=== PATIENT | female | born 1985 | race Caucasian/White ===

== ENCOUNTER 2016-10-31 16:52 | Inpatient (IN) | payer OTHER ==
[~2016-10-31] VITALS: Ht 160 cm; Wt 83.9 kg
--- NOTE | 2016-10-31 17:30 | NUR ---
PT BROUGHT IN VIA [facility] TO BE EVALUATED FOR THE COMPLAINT OF ALOC. PT PLACED ON A 5150 HOLD BY NEHAL KO. PER [facility], N[place]AS [place] WAS DOING THEIR ROUNDS AND FOUND THIS PT ACTING ALTERED. WHEN PT ARRIVED IN ED THE PT HAS WORD SALAD AND IS NOT ANSWERING AND QUESTIONS APPROPRIATELY. PT REPORTS THAT HE IS HEARING VOICE AND HEARING VOICING. PT REMAINS IN RESTRAINTS WITH ENOUGH ROOM BETWEEN THE RESTRAINT AND THE PTS SKIN TO FIT TWO FINGERS. CIRCULATION INTACT. PT IS IN DIRECT OBSERVATION OF THE NURSES STATION. PT IS REASSURED OF HER WELL-BEING.
[2016-10-31 18:12] LABS: BASOPHIL % 0.2 % (0-2); PLATELET COUNT 273 x10^3mcL (130-400); RED CELL DISTRIBUTION WIDTH 11.9 % (11.5-14.5)
[2016-10-31 18:16] LABS: CARBON DIOXIDE 20.9 mmol/L (21-32); CHLORIDE SERUM 105 mmol/L (98-107); GFR1 > 60 mL/min; GLUCOSE SERUM 124 mg/dL (74-106); POTASSIUM SERUM 3.7 mmol/L (3.5-5.1); SODIUM SERUM 140 mmol/L (136-145)
--- NOTE | 2016-10-31 18:20 | NUR ---
PT NOW ANSWERING QUESTIONS APPROPRIATELY. PT IS A/O X 4. DR. CRAMER AWARE.
[2016-10-31 18:21] LABS: ALBUMIN 4.2 g/dL (3.4-5.0); ALKALINE PHOSPHATASE 68 U/L (46-116); ALT/SGPT 35 U/L (14-59); AST/SGOT 22 U/L (15-37); BILIRUBIN TOTAL 0.3 mg/dL (0.20-1.00); TOTAL PROTEIN, SERUM 8.3 g/dL (6.4-8.2)
--- NOTE | 2016-10-31 18:28 | NUR ---
PT PROVIDED ME WITH HER MOTHERS NAME AND NUMBER: ROSITA [phone]
--- NOTE | 2016-10-31 18:31 | NUR ---
PTS BELONGINGS PLACED IN A BAG, CORRECTLY LABLED AND PLACED AT THE NURSES STATION.
--- NOTE | 2016-10-31 18:59 | NUR ---
PTS MOTHER CALLED AND INFORMED THAT THE PT IS HERE.
--- NOTE | 2016-10-31 19:11 | NUR ---
RECEIVED REPORT FROM LIANNA WILLIAM. ALL QUESTIONS AND CONCERNS ADDRESSED.
--- NOTE | 2016-10-31 19:39 | NUR ---
[facility] RESTRIANTS EVALUATATED. +CSM.
--- NOTE | 2016-10-31 19:50 | NUR ---
RESTRISTANTS REMOVED AT THIS TIME. PT IS FOLLOW DIRECTIONS AND NON COMBATIVE AT THIS TIME. WILL CONTINUE TO MONITOR. VS STABLE.
--- NOTE | 2016-10-31 19:55 | NUR ---
PT AMBULATED TO RESTROOM TO PROVIDE URINE SAMPLE FOR URINE DRUG SCREEN.
[2016-10-31 20:14] LABS: AMPHETAMINE QUAL UR NONE DETECTED (NEG <=1000)
[2016-10-31 23:32] LABS: UA SPECIFIC GRAVITY >=1.030 (1.005-1.035); microscopic required? YES; urine erythrocyte NEGATIVE (NEGATIVE)
--- NOTE | 2016-10-31 23:44 | NUR ---
PT RESTING IN GURNEY IN POSITION OF COMFORT AT THIS TIME. RESP E/U, NO DISTRESS NOTED. AROUSABLE TO VERBAL STIMULI. DENIES PAIN AT THIS TIME, COMFORT NEEDS ADDRESSED. VSS. GURNEY IN LOW LOCKED POSITION. WILL CONTINUE TO MONITOR.
[2016-11-01 00:06] LABS: MAGNESIUM 1.9 mg/dL (1.8-2.4); PHOSPHOROUS 3.1 mg/dL (2.5-4.9)
[2016-11-01 00:09] LABS: FREE T4 1.21 ng/dL (0.76-1.46); FREE THYROXINE INDEX 3.4 ug/dL (1.4-4.5); T4(THYROXINE) 10.1 ug/dL (4.7-13.3)
[2016-11-01 00:17] LABS: T3 TOTAL 1.12 ng/mL
[2016-11-01] MEDS ORDERED: RISPERIDONE2 M1 PO (00:42)
[2016-11-01] MEDS ORDERED: BENZTROPINE MESY1 MG PO (00:43)
[2016-11-01] MEDS ORDERED: DIVALPROEX SOD500 M2 PO (00:45)
--- NOTE | 2016-11-01 02:12 | NUR ---
REPORT GIVEN TO LIANNA GODFREY FOR [facility]ST TRANSFER
[2016-11-01 03:13] VITALS: BP 105/73
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
--- NOTE | 2016-11-01 07:40 | NUR ---
PATIENT AOX4, DENIES HEADACHE OR ANY PAIN/DISCOMOFORT. TELE 29. LUNGS CTA, NO RESP DISTRESS NOTED ON RA. PERIPHERAL PULSES PALPABLE, NO EDEMA. BOWEL SOUNDS ACTIVE, LAST BM YESETRDAY STATED NORMAL. NSKIN INTACT. IV ACCESS TO LFA RUNNING NS SITE WNL. CALL LIGHT WITHIN REACH. CALM AND COOPERATIVE AT THIS TIME. DENIES ANY SUICIDAL IDEATION AT THIS TIME. SITTER AT BEDSIDE.
[2016-11-01 07:45] VITALS: BP 108/52
--- NOTE | 2016-11-01 13:26 | NUR ---
PATIENT C/O TONGUE "FEELS LIKE ITS SWELLING AND TWISTING". PATIENT ALSO VOMITED. DR PHILIP PAGEMarium. BENEDRYL PO ORDERED. ZOFRAN OFFERED TO PATIENT BUT PATIENT STATES NAUSEA GONE. BENEDRYL PO GIVEN. 10 MINUTES LATER PATIENT VOMITED AGAIN. ZOFRAN GIVEN. DR PHILIP PAGEMarium AND BENEDRYL IV ORDERED. WILL GIVEN ONCE VERIFIED BY PHARMACY.
[2016-11-01 16:08] VITALS: BP 106/64
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
[2016-11-01] MEDS ORDERED: OLANZAPINE10 MG PO (18:34)
--- NOTE | 2016-11-01 19:43 | NUR ---
RECEIVED PT RESTING IN BED WITH EYES CLOSED. AROUSED WHEN NAME CALLED. ALERT AND VERBAL WITH CLEAR SPEECH. AOX4. ON ROOM AIR. NO S/S OF RESPIRATORY DISTRESS NOTED. ON TELE 29, NSR. DENIES ANY CHEST PAIN. ABD SOFT AND FLAT. BOWEL SOUNDS ACTIVE. LAST BM 11/01/16. IV TO LEFT FA PATENT AND INTACT. IV NS INFUSING WELL. NO S/S OF INFECTION NOTED. NO EDEMA NOTED. PULSES PALPABLE. NO S/S OF DISTRESS OR DISCOMFORT AT THIS TIME. DENIES ANY THOUGHTS OF SUICIDAL IDEATION OR HARMING OTHERS. CALM AND COOPERATIVE. CALL LIGHT WITHIN REACH. WILL CONTINUE TO MONITOR.
--- NOTE | 2016-11-01 20:05 | NUR ---
CALLED [facility] AND RECEIVED CALL BACK FROM TERRAZZO WORKER DR. SUAREZ. NOTIFIED OF PT CURRENT MEDICATIONS RISPERDAL AND COGENTIN FOR SIDE EFFECTS. ALSO PREVIOUSLY RECEIVING ZYPREXA, BUT NO ORDER. NEW ORDER RECEIVED FOR ZYPREXA 5 MG PO DAILY.
[2016-11-01 20:20] VITALS: BP 98/65
--- NOTE | 2016-11-02 00:08 | NUR ---
PT RESTING IN BED WITH EYES CLOSED. BREATHING EQUAL AND UNLABORED. NO S/S OF RESPIRATORY DISTRESS NOTED. IV PATENT AND INFUSING WELL. RESTING COMFORTABLY WITH RELAXED FACIAL FEATURES. CALL LIGHT WITHIN REACH. WILL CONTINUE TO MONITOR.
[2016-11-02 05:50] VITALS: BP 108/64
--- NOTE | 2016-11-02 06:06 | NUR ---
PT SLEPT WELL THROUGH THE NIGHT. ALERT AND VERBAL WITH CLEAR SPEECH. NO S/S OF RESPIRATORY DISTRESS NOTED. BREATHGIN EQUAL AND UNLABORED. CALM AND COOPERATIVE AT THIS TIME. DENIES ANY PAIN OR DISCOMFORT. NO S/S OF DISTRESS NOTED. CALL LIGHT WITHIN REACH. WILL CONTINUE TO MONITOR.
--- NOTE | 2016-11-02 07:45 | NUR ---
PATIENT A/OX3, DENIES HEADACHE. TELE 29, DENIES CP. PERIPHERAL PULSES PALPABLE. NO RESP DISTRESS NOTED ON RA. BOWEL SOUNDS ACTIVE, LAST BM YESTERDAY, DENEIS N/V AT THIS TIME. SKIN INTACT, IV ACCESS TO LFA RUNNING NS INFUSING WELL SITE WNL. DENIES ANY PAIN. NOT VOICING ANY SUICIDAL IDEATION AT THIS TIME. BEHAVIOR APPROPRIATE. ASKING TO SPEAK WITH DOCTOR, WILL NOTIFY HER WHEN DOCTOR IS HERE. CALL LIGHT WITHIN REACH.
[2016-11-02 09:14] VITALS: BP 120/85
[2016-11-02 09:22] VITALS: BP 120/85
--- NOTE | 2016-11-02 09:26 | NUR ---
PATIENT WIPING/CLEANSING SELF WITH WASHCLOTHS. SITTER AT BEDSIDE.
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
--- NOTE | 2016-11-02 10:55 | NUR ---
IV INFILTRATED TO LFA, SITE WITH REDNESS/SWELLING. IV DC'D CATH INTACT, EXTREMITY ELEVATED ON PILLOW AND ICE PACK APPLIED. NEW IV STARTED TO RFA 22G, 10CC NS FLUSHED, SITE WNL, PATIENT TOLERATED WELL. RESUMED FLUIDS. WILL CONT TO MONITOR.
--- NOTE | 2016-11-02 15:33 | NUR ---
MOTHER OF PATIENT CALLED, SHE STRONGLY BELIEVES PATIENT SHOULD TRANSFER TO A PSYCH FACILITY UPON DISCHARGE, STATING "PATIENT STAYS UP ALL NIGHT HEARING VOICES AND TALKING TO THEM" ALSO SAYS PATIENT'S BEHAVIOR IS INAPPROPRIATE AND ABNORMAL AT HOME. ALSO STATES PATIENT HAD 2 CHILDREN TAKEN AWAY FROM HER B/C "SHE COULDN'T HAVE THEM, SHE WOULDN'T COOPERATE". MOTHER STATES MAY POSSIBLY COME BY LATER.
--- NOTE | 2016-11-02 16:45 | NUR ---
SPOKE WITH DR LEWIS, TELEPHONE ORDER PLACED FOR SS TO TRANSFER PATIENT TO PSYCH FACILITY.
[2016-11-02 17:56] VITALS: BP 99/61
--- NOTE | 2016-11-02 19:35 | NUR ---
PT IS LAYING IN BED. IS ON 5150 [address]. SHE DOES NOT VOICE ANY INTENTS OF HARM TO SELF OR OTHERS AT THIS TIME. SHE IS A/0 X4 AND IS A BIT APPREHENSIVE REGARDING PLACEMENT TO PSYCH FACILITY, PENDING CASE MANAGEMENT. SHE IS ON CARDIAC MONITORING, TELE #29, SB AT A RATE OF 55. BILATERAL PERIPHERAL PULSES ARE PALPABLE WITH NO S&S OF EDEMA. SHE IS BREATHING ON ROOM AIR AND LUNG SOUNDS ARE CLEAR TO AUSCULTATION. PT DENIES ANY NAUSEA OR VOMITING AT THIS TIME. HER LAST BM WAS 11/01, ABDOMEN IS SOFT AND ROUND WITH ACTIVE BOWEL SOUNDS. SHE HAS BATHROOM PRIVLEGES AND IS AMBULATORY WITH NO WEAKNESS. SHE IS ABLE TO FREELY VOID URINE. SKIN IS DRY AND INTACT. NO REDNESS OR ECCYMOSIS NOTED. PT DENIES ANY PAIN, CHEST PAIN, DIZZINESS OR SOB. IV FLUIDS ARE FLOWING WELL INTO THE R FOREARM, NS AT 100 ML/HR. ROOM IS FREE AND CLEAR OF ANY HAZARDS. CALL LIGHT IS WITHIN REACH AND SITTER IS AT BEDSIDE.
[2016-11-02 19:52] VITALS: BP 92/52
[2016-11-02 23:01] VITALS: BP 103/70
--- NOTE | 2016-11-02 23:51 | NUR ---
PT ASLEEP AND QUITELY RESTING IN BED. NO SIGNS OF DISTRESS AT THIS TIME. SITTER AT BED SIDE.
--- NOTE | 2016-11-03 03:39 | NUR ---
MADE ROUNDS. PT RESTING PEACEFULLY IN BED. DOES NOT APPEAR TO BE IN ANY DISTRESS AT THIS TIME. CALL LIGHT IS WITHIN REACH. SITTER AT BEDSIDE
[2016-11-03 05:07] VITALS: BP 103/60
--- NOTE | 2016-11-03 05:13 | NUR ---
PT IN BED RESTING. SHE RECEIVED A PEACEFUL NIGHT'S SLEEP. SHE COMPLIED WITH NURSING CARE THROUGHOUT THE NIGHT. PT DID NOT VOICE INTENTS OF HARMING SELF OR OTHERS DURING THE SHIFT. NO COMPLAINTS OF PAIN OR ANY SIGNS OF DISTRESS THROUGH THE SHIFT. NO COMPLAINTS OF DIZINESS OR SOB NOTED. IV FLUIDS INFUSING WELL. ROOM IS FREE OF ANY HAZARDS. CALL LIGHT WITHIN REACH.
--- NOTE | 2016-11-03 07:45 | NUR ---
A/O X4. CLEAR SPEECH. FOLLOW COMMANDS. ON TEL 29 HR 55. RADIAL AND PEDAL PULSES PALPABLE. TRACE BLE. <3 SECS CAP REFILL. ON RA SAT 98% BREATHING EVEN AND UNLABORED. COMPLAINS OF NAUSE AND VOMITING BUT NONE AT THIS TIME. VOIDING ADEQUATELY. AMBULATORY WITH STEADY GAIT. NO SKIN TEAR OR OPEN WOUND. IV SITE INTACT ON RFA. NS INFUSING WELL AT 100 ML/HR. WILL CONTINUE TO MONITOR. CALL LIGHT WITHIN REACH.
--- NOTE | 2016-11-03 07:45 | NUR ---
A/O X4. CLEAR SPEECH. FOLLOW COMMANDS. ON TEL 29 HR 55. RADIAL AND PEDAL PULSES PALPABLE. TRACE BLE. <3 SECS CAP REFILL. ON RA SAT 98% BREATHING EVEN AND UNLABORED. NO NVD. VOIDING ADEQUATELY. AMBULATORY WITH STEADY GAIT. NO SKIN TEAR OR OPEN WOUND. IV SITE INTACT ON RFA. NS INFUSING WELL AT 100 ML/HR. WILL CONTINUE TO MONITOR. CALL LIGHT WITHIN REACH.
--- NOTE | 2016-11-03 08:11 | NUR ---
TOOK MEDS WITHOUT DIFFICULTY.
--- NOTE | 2016-11-03 11:17 | NUR ---
RESTING COMFORTABLY. NO DISTRESS NOTED.
[2016-11-03 13:22] VITALS: BP 103/60
--- NOTE | 2016-11-03 15:07 | NUR ---
SLEEPING UPON ENTERING ROOM. NO DISTRESS NOTED.
[2016-11-03 15:46] VITALS: BP 101/62
--- NOTE | 2016-11-03 17:03 | NUR ---
WATCHING TV AT THIS TIME. NO DISTRESS NOTED. WILL CONTINUE TO MONITOR.
--- NOTE | 2016-11-03 18:28 | NUR ---
Pt COMPLAINING OF LOWER ABD PAIN RADIATING TO BACK 10/17 . NORCO NOT DUE AT THIS TIME. PAGED DR LEWIS. CLINIC SEISMOLOGY TECHNICAL OFFICER STATES DR JEAN IS COVERING FOR DR LEWIS.
--- NOTE | 2016-11-03 18:30 | NUR ---
SPOKE TO DR JEAN REGARDING Pt COMPLAINING OF ABD PAIN AT THIS TIME. ORDERED TO GIVE 1MG MORPHINE Q4 HRS PRN.
--- NOTE | 2016-11-03 18:44 | NUR ---
COMPLAINS OF LOWER ABD PAIN 10/17. IV MORPHINE GIVEN. WILL CONTINUE TO MONITOR.
--- NOTE | 2016-11-03 19:35 | NUR ---
PT IS FOUND LAYING IN BED. SHE IS APPREHENSIVE ABOUT PLACEMENT TO PSYCH FACILITY AND INSISTING THAT SHE IS OK AND READY TO BE D/C HOME. SHE WAS TOLD THAT SHE IS STILL ON 5150 HOLD. SHE BEGAN RAMBLING ABOUT BRINGING PEOPLE TO HER HOME AND HOW SHE SHOULD BE ABLE TO SPEND HER MONEY HOW SHE PLEASES. SHE ALSO COMPLAINED OF THROAT ITCHINESS AND WAS GIVEN ICE FOR RELIEF. SHE IS A/O X4 AND BREATHING ON ROOM AIR. LUNGS ARE CLEAR TO AUSCULTATION. SHE IS ON TELE MONITORING #29, NSR AT 71. BILATERAL PERIPHERAL PULSES ARE PALPABLE AND NO S&S OF EDEMA. HER ABDOMENA IS ROUND AND SOFT WITH ACTIVE BOWEL SOUNDS. PT STATES HER LAST BM WAS 2 DAYS AGO, 11/01/16. SHE IS ABLE TO FREELY VOID URINE. SHE IS AMBULATORY WITH BATHROOM PRIVLEGES. NO WEAKNESS AT THIS TIME. HER SKIN IS DRY AND INTACT WITH NO REDNESS OR ECCHYMOSIS. IV FLUIDS ARE FLOWING WELL INTO THE RIGHT FOREARM, NS AT 100 ML/HR. ROOM IS FREE AND CLEAR OF ANY HAZARDS. SITTER AT BEDSIDE.
[2016-11-03 20:00] VITALS: BP 120/85
--- NOTE | 2016-11-04 00:09 | NUR ---
PT CURRENTLY ASLEEP IN BED SHOWING NO SIGNS OF DISTRESS. IV FLUIDS INFUSING WELL. NO S&S OF INFILTRATION. NO SOB NOTED. CALL LIGHT WITHIN REACH. SITTER AT BEDSIDE.
--- NOTE | 2016-11-04 03:18 | NUR ---
PT SLEEPING SOUNDLY IN BED. DOES NOT APPEAR TO BE IN ANY DISTRESS. IF FLUIDS FLOWING WELL. ROOM IS FREE AND CLEAR OF ANY HAZARDS. CALL LIGHT IS WITHIN REACH AND SITTER IS AT BEDSIDE.
--- NOTE | 2016-11-04 05:45 | NUR ---
PT ASLEEP AND RESTING PEACEFULLY. NO SIGNIFICANT EVENTS OCCURED THROUGHOUT THE SHIFT. SHE COMPLIED WITH NURSING CARE THROUGHOUT THE SHIFT WELL. SHE DID NOT VOICE ANY INTENTS TO HARM SELF OR OTHERS. NO DISTRESS OR SOB NOTED AT THIS TIME. PT DENIED HAVING ANY PAIN THROUGHOUT THE SHIFT. CALL LIGHT WITHIN REACH AND SITTER AT BEDSIDE. ROOM IS FREE AND CLEAR OF ANY HAZARDS.
[2016-11-04 06:21] VITALS: BP 92/56
--- NOTE | 2016-11-04 07:05 | NUR ---
BEDSIDE REPORT RECEIVED FROM [facility] SHIFT NURSE AT THIS TIME. PATIENT ASLEEP, NO SIGNS OF DISTRESS NOTED, BREATHING EVEN AND UNLABORED. EASILY AROUSED VIA VERBAL STIMULI, ALL SAFETY MEASURES IN PLACE, NURSE AID AT BEDSIDE FOR SAFETY, WILL CONTINUE TO MONITOR.
--- NOTE | 2016-11-04 07:11 | NUR ---
CARE ENDORSED TO DAY NURSE
[2016-11-04 07:30] VITALS: BP 112/71
--- NOTE | 2016-11-04 07:40 | NUR ---
PATIENT ASLEEP, EASILY AROUSED VIA VERBAL STIMULI. ORIENTED X4, DROWSY/SLEEPY. DENIES CHEST PAIN, NO DIZZINESS, TELE# 29. SCD'S IN PLACE, ON ROOM AIR. NS INFUSING TO RFA AT 100 ML/HR, NO REDNESS OR INFILTRATION NOTED TO SITE. CALM AND COOPERATIVE WITH CARE, ALL SAFETY MEASURES IN PLACE, WILL CONTINUE TO MONITOR.
--- NOTE | 2016-11-04 09:22 | NUR ---
PATIENT ASLEEP, EASILY AROUSED VIA VERBAL STIMULI. ALL SAFETY MEASURES IN PLACE AND REVIEWED, NURSE AID AT BEDSIDE FOR SAFETY, WILL CONTINUE TO MONITOR.
--- NOTE | 2016-11-04 11:48 | NUR ---
PATIENT AWAKE, ALERT, TALKING TO SELF/SEEMS TO BE HAVING A CONVERSATION WITH ANOTHER PERSON NOT PRESENT IN ROOM. WHEN ASKED WHETHER SHE SEES ANOTHER PERSON IN THE ROOM SHE STATES "NO, JUST YOU". ALL SAFETY MEASURES IN PLACE, WILL CONTINUE TO MONITOR.
--- NOTE | 2016-11-04 15:25 | NUR ---
RECEIVED CALL FROM DR. LEWIS WHO INFORMED ME THAT HE SPOKE WITH DR GIMENEZ RE: PSYCH RE-EVALUATION OF THE PATIENT AND IF PATIENT IS CLEAR 5150 CAN BE DC HOME TODAY. BLAST HOLE DRILLER MARNI MADE AWARE. ATTENDING NURSE PIERCE MADE AWARE.
--- NOTE | 2016-11-04 17:06 | NUR ---
RECEIVED TELEPHONE ORDER FROM DR LEWIS TO DC PATIENT HOME. PER DR LEWIS PATIENT IS MEDICALLY AND PSYCHOLOGICAL STABLE TO BE DC HOME. ATTENDING NURSE TARIQ AND DOLL MAKER MARNI MADE AWARE.
--- NOTE | 2016-11-04 17:15 | NUR ---
SPOKE WITH DR GIMENEZ AND INFORMED HIM OF PATIENT TALKING TO SELF AND "OTHER PEOPLE" NOT IN ROOM. PATIENT DENIES HALLUCINATIONS, PER DR GIMENEZ THIS IS A CHRONIC CONDITION AND PATIENT IS SAFE TO BE DISCHARGED HOME SINCE PATIENT HAS NO SUICIDAL IDEATION/PLAN, AND NO INTENTIONS TO HARM OTHERS AND IS NOW TAKING HER MEDICATION.
[2016-11-04 17:45] VITALS: BP 112/71
--- NOTE | 2016-11-04 17:50 | NUR ---
DISCHARGE TEACHING PROVIDED TO PATIENT AT THIS TIME. IV DC'D, TELE RETURNED TO GEOMAGNETICIAN. WILL NOTIFY NURSE AID.
--- NOTE | 2016-11-04 20:23 | NUR ---
PATIENT DC [place] VIA WHEELCHAIR PICK BY MOTHER ROSITA PARKER. DC WITH BELONGINGS AND DC PAPERWORKS. PATIENT RECEIVED DC INSTRUCTION FROM AM NURSE. DC WITH STABLE CONDITION.
== END 2016-11-04 20:22 | disposition home or self-care (01) | DRG 750 ==
LOC: EDBD 16:52 → ED 16:52 → DU 11-01 01:42
PROVIDERS: Emergency Medicine; Family Medicine; ADMIT Internal Medicine Pulmonary Disease
DX: F25.0 Schizoaffective disorder, bipolar type (principal); G93.41 Metabolic encephalopathy; Z91.14 Patient's other noncompliance with medication regimen; Z78.1 Physical restraint status; F15.10 Other stimulant abuse, uncomplicated; R73.03 Prediabetes; Z53.29 Procedure and treatment not carried out because of patient's decision for other reasons; F12.10 Cannabis abuse, uncomplicated; Z79.899 Other long term (current) drug therapy; Z59.0 Homelessness
CPT/HCPCS: 82962; 83880; 84439; G0480; J0696; J1200; J1630; J2060; J2270; J2405; J7030; Q0092; Q0163

== ENCOUNTER 2016-11-08 20:32 | Inpatient (IN) | payer OTHER ==
[~2016-11-08] VITALS: Ht 160 cm; Wt 83.9 kg
[~2016-11-08 20:32] MED LIST: BENZTROPINE MESY1 MG PO; DIVALPROEX SOD500 M2 PO; OLANZAPINE10 MG PO; RISPERIDONE2 M1 PO
--- NOTE | 2016-11-08 20:54 | NUR ---
REC'D PT BIB POLICE, PER OFFICER, KRISSY WAS FOUND AT 7-11 TALKING TO HERSELF AND VOICING SUICIDAL IDEATION. PT IS UNCOOPERATIVE WITH ASSESSMENT AND IS REPEATEDLY TALKING TO SELF. BREATHING E/U, NO SOB NOTED. WILL CONTINUE TO MONITOR.
--- NOTE | 2016-11-08 21:25 | NUR ---
STRAIGHT CATH COMPLETED AT THE BEDSIDE USING STERILE TECHNIQUE, WITH ASSISTANCE FROM RN JAVIER AND EMT DORITA. PT COOPERATIVE, FOLLOWS COMMANDS AT TIME OF PROCEDURE. PT CONTINUES TO HAVE CONVERSATIONS WITH HERSELF THROUGHOUT PROCEDURE.
--- NOTE | 2016-11-08 21:40 | NUR ---
PT GONE TO CT SCAN
[2016-11-08 21:53] LABS: BASOPHIL % 0.5 % (0-2); PLATELET COUNT 234 x10^3mcL (130-400); RED CELL DISTRIBUTION WIDTH 11.8 % (11.5-14.5)
--- NOTE | 2016-11-08 22:01 | NUR ---
PT BACK FROM CT SCAN WITHOUT INCIDENCE. RESTING IN BED, NO ACUTE SIGNS OF DISTRESS NOTED. IV INFUSING WELL. WILL CONTINUE TO MONITOR.
[2016-11-08 22:13] LABS: ALBUMIN 4.2 g/dL (3.4-5.0); ALKALINE PHOSPHATASE 69 U/L (46-116); ALT/SGPT 38 U/L (14-59); AMYLASE 39 U/L (25-115); AST/SGOT 33 U/L (15-37); BILIRUBIN TOTAL 0.63 mg/dL (0.20-1.00); CALCIUM 8.4 mg/dL (8.5-10.1); CARBON DIOXIDE 24.7 mmol/L (21-32); CHLORIDE SERUM 103 mmol/L (98-107); CHOLESTEROL 151 mg/dL (<200); GFR1 > 60 mL/min; GLUCOSE SERUM 167 mg/dL (74-106); LIPASE 163 IU/L (73-393); MAGNESIUM 2.1 mg/dL (1.8-2.4); SODIUM SERUM 139 mmol/L (136-145); T4(THYROXINE) 10.2 ug/dL (4.7-13.3); TOTAL PROTEIN, SERUM 8.1 g/dL (6.4-8.2)
[2016-11-08 22:16] LABS: POTASSIUM SERUM 2.8 mmol/L (3.5-5.1)
[2016-11-08 22:24] LABS: microscopic required? YES
[2016-11-08 22:27] LABS: urine erythrocyte TRACE (NEGATIVE)
--- NOTE | 2016-11-08 22:32 | NUR ---
XRAY IN TO SEE PATIENT
[2016-11-08 22:48] LABS: AMPHETAMINE QUAL UR NONE DETECTED (NEG <=1000)
--- NOTE | 2016-11-09 01:01 | NUR ---
REPORT GIVEN TO HUGO DSOUZA FOR CONTINUITY OF CARE IN [facility]
[2016-11-09 01:36] VITALS: BP 98/57
[2016-11-09 01:41] VITALS: BP 98/57
--- NOTE | 2016-11-09 02:09 | NUR ---
PT RECEIVED FROM ED VIA GUERNEY ASSISTED BY NURSE. PT IS DROWSY BUT RESPONDS TO VERBAL AND TACTILE STIMULATION. DENIES HEADACHE AND DIZZINESS. PT DENIES SUICIDAL IDEATION AT THIS TIME. IV SITE TO RAC AND LAC, PATENT AND INTACT, IV FLUIDS CONTINUED FROM ED. PT WAS ORIENTED TO ROOM AND CALL LIGHT. BED IN LOWEST POSITION. SITTER AT BEDSIDE FOR SAFETY. WILL CONTINUE TO MONITOR.
--- NOTE | 2016-11-09 04:12 | NUR ---
PT ASLEEP IN BED. IN NO OBVIOUS SIGNS OF DISTRESS AT THIS TIME. SITTER AT BEDSIDE FOR SAFETY. CALL LIGHT WITHIN REACH. WILL CONTINUE TO MONITOR.
--- NOTE | 2016-11-09 05:08 | NUR ---
PATIENT RESTED THROUGHOUT THE NIGHT. NO DISTRESS NOTED. NO HALLUCINATIONS OR SUICIDAL IDEATION SINCE ARRIVING ON UNIT. SAFETY AND COMFORT MEASURES MAINTAINED. BED IN LOWEST POSITION. SITTER AT BEDSIDE FOR SAFETY. CALL LIGHT WITHIN REACH. WILL CONTINUE TO MONITOR AND ENDORSE TO NEXT SHIFT NURSE.
[2016-11-09 06:24] VITALS: BP 108/64
--- NOTE | 2016-11-09 07:40 | NUR ---
RECEIVED PT IN BED, A/A/O X 4, ANXIOUS, BUT COOPERATIVE, SITTER BY BEDSIDE. PT STATES THAT SHE HAS NOT EXPERIENCED ANY EPISODES OF VISUAL AND AUDITORY HALLUCINATIONS AEB TAKLING TO PEOPLE NOT PRESENT, NOR DOES SHE REMEMBER EVER DOING SO IN THE PAST FEW DAYS. PT ASKED IF SHE WILL HAVE TO TAKE MEDICATIONS FOR SAID SYMPTOMS; REPLIED THAT PSYCH MD WILL MAKE THAT DECISION. MED/SURG PT, NO CHEST PAIN OR DISCOMFORT NOTED. CHANDLER RADIAL AND PEDAL PULSES PRESENT, NO EDEMA, CAP REFILL < 3 SECS. BUL / BLL CLEAR, CHEST RISING EVENLY, ON R/A. SPO2 98%. ABD ROUND, SOFT, NON-TENDER, NORMOACTIVE BOWEL SOUNDS X 4 QUADS, UNABLE TO REMEMBER TIME OF LAST BM. VOIDS FREELY, NO DYSURIA. AMBULATES WITHOUT GAIT OR BALANCE IMPAIRMENT. SKIN INTACT. DENIES PAIN AT THIS TIME. IV SITE AT [facility], RUNNING NS TKO. SIDE RAILS UP X 2, BED IN LOW POSITION, CALL LIGHT WITHIN REACH. WILL CONTINUE TO MONITOR.
--- NOTE | 2016-11-09 11:00 | NUR ---
PT IN BED, RESTING COMFORTABLY, SITTER BY BEDSIDE. NO RESPIRATORY DISTRESS, PAIN, OR DISCOMFORT NOTED. WILL CONTINUE TO MONITOR.
[2016-11-09 12:52] VITALS: Ht 160 cm; Wt 83.9 kg
[2016-11-09 13:47] VITALS: BP 112/79
--- NOTE | 2016-11-09 13:47 | NUR ---
RECEIVED PT IN BED, A/A/O X 4, ANXIOUS, BUT COOPERATIVE, SITTER BY BEDSIDE. PT STATES THAT HAS NOT EXPERIENCED ANY EPISODES OF VISUAL AND AUDITORY HALLUCINATIONS AEB TALKING TO PEOPLE NOT PRESENT, NOR DOES SHE REMEMBER EVER DOING SO IN THE PAST FEW DAYS. PT ASKED IF SHE WILL HAVE TO TAKE MEDICATIONS FOR SAID SYMPTOMS; REPLIED THAT PSYCH MD WILL MAKE THAT DECISION. MED/SURG PT, NO CHEST PAIN OR DISCOMFORT NOTED. CHANDLER RADIAL AND PEDAL PULSES PRESENT, NO EDEMA, CAP REFILL < 3 SECS. BUL / BLL CLEAR, CHEST RISING EVENLY, ON R/A, SPO2 98%. ABD ROUND, SOFT, NON-TENDER, NORMOACTIVE BOWEL SOUNDS X 4 QUADS, UNABLE TO REMEMBER TIME OF LAST BM. VOIDS FREELY, NO DYSURIA. AMBULATES WITHOUT GAIT OR BALANCE IMPAIRMENT. SKIN INTACT. DENIES PAIN AT THIS TIME. IV SITE AT [facility], RUNNING NS TKO. SIDE RAILS UP X 2, BED IN LOW POSITION, CALL LIGHT WITHIN REACH. WILL CONTINUE TO MONITOR.
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
--- NOTE | 2016-11-09 17:00 | NUR ---
A/A/O X 3, CALM AND COOPERATIVE AT THIS TIME. PT STATES THAT SHE HAS NOT EXPERIENCED ANY TYPE OF HALLUCINATION TODAY. WILL CONTINUE TO MONITOR.
[2016-11-09 17:18] VITALS: BP 97/57
--- NOTE | 2016-11-09 17:22 | NUR ---
SPOKE WITH DR TORRES ON PHONE. UPDATED ON K LEVEL 3.[address] GIMENEZ RECOMMENDATION TO TRANSFER TO INPATIENT PSYCH UNDER [address] TORRES, OK TO TRANSFER TO INPATIENT PSYCH FACILITY WHEN BED IS AVAILABLE. CONTINUE ALL HOME MEDICATIONS. ORDERS NOTED AND CARRIED OUT.
--- NOTE | 2016-11-09 18:04 | NUR ---
PT ON EDGE OF BED, EATING DINNER WHILE WATCHING TV, SITTER BY BEDSIDE. PT IS CALM AND COOPERATIVE. NO RESPIRATORY DISTRESS, PAIN, OR DISCOMFORT NOTED. WILL ENDORSE TO NOC SHIFT.
--- NOTE | 2016-11-09 18:26 | NUR ---
ARELY REPORTS THAT PT HAS INCREASINGLY STARTED TO RESPOND TO EXTERNAL STIMULI, STARTING AT 1400. ON TWO SEPARATE OCCASIONS, PT WAS ASKED IF SHE IS SEEING PEOPLE OR HEARING VOICES, AND SHE RESPONDED ONCE WITH DEFINITE AWARENESS THAT SHE IS EXPERIENCING THE HALLUCINATIONS, AND ANOTHER RESPONSE WAS THAT SHE HAS NOT EXPERIENCED ANYTHING AT ALL TODAY. WILL ENDORSE TO NOC SHIFT.
--- NOTE | 2016-11-09 19:10 | NUR ---
PATIENT RECEIVED AWAKE, ALERT, AND ORIENTED X3. NO DISTRESS NOTED. PATIENT C/O HIP/LEG PAIN 6/10 FROM FALLING DOWN, WILL MEDICATE PER DOCTOR'S PRN ORDER. PATIENT WAS NOTED HAVING AUDITORY HALLUCINATIONS AND SPEAKING TO SELF. PATIENT STATES HAVING VISUAL HALLUCINATIONS AT TIMES. IV SITE TO RIGHT AC, PATENT AND INTACT. IV SITE TO LEFT AC, PATENT AND INTACT. BED IN LOWEST POSITION. SITTER AT BEDSIDE FOR SAFETY. CALL LIGHT WITHIN REACH. WILL CONTINUE TO MONITOR.
--- NOTE | 2016-11-09 20:05 | NUR ---
IV TO RIGHT AC DC'D AT THIS TIME PER PATIENTS REQUEST.
[2016-11-09 22:01] VITALS: BP 125/87
--- NOTE | 2016-11-10 05:04 | NUR ---
PATIENT RESTED THROUGHOUT THE NIGHT. NO DISTRESS NOTED. MEDICATED FOR LEG PAIN WITH NORCO PO X 1 PER DOCTOR'S PRN ORDER. SITTER AT BEDSIDE FOR SAFETY. BED IN LOWEST POSITION. CALL LIGHT WITHIN REACH. WILL CONTINUE TO MONITOR AND ENDORSE TO NEXT SHIFT NURSE.
[2016-11-10 06:38] VITALS: BP 96/65
--- NOTE | 2016-11-10 08:00 | NUR ---
ALERT/ORIENTED TO PERSON/PLACE/TIME; SELF TALKING. HALLUCINATION OF VISION AND AUDITORY. NO RESP DISTRESS. NO S/S OF PAIN. TOLERATED REGULAR DIET BREAKFAST. IVHL'D TO LAC; PATENT WITH NS FLUSHING. PROJECT MANAGER PROCESS DEVELOPMENT AT BED SIDE CLOSELY WATCH PATIENT FOR SAFETY PRECAUTION. CALL LIGHT IN REACH.
[2016-11-10 10:29] VITALS: BP 148/75
--- NOTE | 2016-11-10 12:10 | NUR ---
C/O RT FOOT NAILS PAIN. NO REDNESS/SWEELING TO RT FOOT. USING Q TIP APPLIED LUBLICATING JELLY (PLACEBO TREATMENT) ON NAILS OF RT FOOT. PATIENT STATED RT FOOT NAIL PAIN RELEAVED.
--- NOTE | 2016-11-10 12:28 | NUR ---
RECEIVED PHONE CALL FROM DR TORRES RE: PATIENT TRANSFER. NOTIFIED DR TORRES THAT NO INFORMATION RE: PSYCH FACILITY TRANSFER ARRANGENMENT AT THIS TIME. SPOKE WITH PABLO FROM [employer] TODAY AND SHE SAID THAT SHE CALLED [facility] AND SHE HAS NO TRANSFER INFORMATION AT THIS TIME.
--- NOTE | 2016-11-10 18:29 | NUR ---
STATED NO FOOT NAIL PAIN NOW. CONDITION STABLE. ENDORSD CARE TO NOC NURSE.
--- NOTE | 2016-11-10 19:10 | NUR ---
PATIENT RECEIVED AWAKE, ALERT, AND ORIENTED X 3. NO DISTRESS NOTED. PATIENT DENIES HAVING AUD/VIS HALLUCINATIONS AT THIS TIME. PATIENT DENIES HAVING SUICIDAL IDEATION AT THIS TIME. IV SITE TO LEFT FOREARM, PATENT AND INTACT. BED IN LOWEST POSITION. SITTER AT BEDSIDE FOR SAFETY. CALL LIGHT WITHIN REACH. WILL CONTINUE TO MONITOR.
[2016-11-10 21:25] VITALS: BP 93/55
--- NOTE | 2016-11-11 05:01 | NUR ---
PATIENT RESTED THROUGHOUT THE NIGHT. MEDICATED FOR LEG PAIN WITH NORCO PO X 1 PER DOCTOR'S PRN ORDER. PAIN MANAGED THROUGHOUT THE NIGHT. SITTER AT BEDSIDE FOR SAFETY. BED IN LOWEST POSITION. CALL LIGHT WITHIN REACH. WILL CONTINUE TO MONITOR AND ENDORSE TO NEXT SHIFT NURSE.
[2016-11-11 06:47] VITALS: BP 116/60
[2016-11-11 08:00] VITALS: BP 99/61
--- NOTE | 2016-11-11 08:00 | NUR ---
ALERT TO SELF. VERY CONFUSED AND A LITTLE ANXIOUS. SHE IS HAVING DIFFICULTY MAKING THE SIMPLEST DECISIONS. EXAMPLE: SHOULD I DRINK THE HOT CHOCOLATE? WHEN SHOULD I GO OUTSIDE? DENIES ANY PAIN. BREATHING FREELY ON RA. NO TELE. SL TO LEFT AC, INDEPENDENT W ADL'S. LOCKSMITH HELPER IN ROOM TO ASSIST WITH ANY NEEDS.VSS.
--- NOTE | 2016-11-11 09:20 | NUR ---
PT SITTING AT EDGE OF BED. SITTER IN ROOM. PT WOULD LIKE TO GO FOR WALK. LEFT MESSAGE AT SECURITY OFFICE TO PLEASE COME ESCORT PT AND SITTER FOR WALK. WAITING FOR RESPONSE.
--- NOTE | 2016-11-11 10:34 | NUR ---
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 PT IS A LITTLE RESTLESS. ADMIN ATIVAN 1 MG IV. GAVE DIET SPRITE AND ELIANA CRACKERS.
--- NOTE | 2016-11-11 13:07 | NUR ---
FINISHED LUNCH. SITTING UP IN BED. RESTLESS. HARJIT WORKED A LITTLE FOR A SHORT TIME. SITTER IN ROOM TO PROVIDE ASSIST.
[2016-11-11 17:00] VITALS: BP 120/80
--- NOTE | 2016-11-11 18:39 | NUR ---
RESTING QUIETLY. BREATHING FREELY ON RA. CONTINUES TO BE CONFUSED AND HEAR MULTIPLE VOICES. COOPERATIVE WITH CARE. SL TO LEFT AC. NO TELE. VSS. WAITING FOR BED AT PSYCH FACILITY. CALL LIGHT WITHIN REACH. BRP. INDEPENDENT W ADL'S.
--- NOTE | 2016-11-11 22:07 | NUR ---
RECEIVED PT LAYING IN BED. SHE IS APPREHENSIVE AT THIS TIME ABOUT BEING HOSPITALIZED AND IS ASKING ABOUT PSYCH FACILITY PLACEMENT. SHE IS A/O X4. MED-SURG PT NOT ON TELE MONITORING. BILATERAL PERIPHERAL PULSES ARE PALPABLE, NO SIGNS OF EDEMA PRESENT AND CAP REFILL <3 SECONDS. SHE IS BREATHING ON ROOM AIR WITH O2 SAT AT 98. LUNG SOUNDS ARE CLEAR TO AUSCULTATION. PT DENIES SOB AT THIS TIME AND DOESN'T APPEAR TO BE IN ANY RESP DISTRESS. PT DENIES N/V AND STATES HER LAST BM WAS TODAY, X2, NORMAL AND FORMED. SHE VOIDS FREELY OF URINE. SHE IS SELF AMBULATORY WITHOUT ASSISTANCE. HER SKIN IS WNL, DRY AND INTACT. SHE DENIES ANY PAIN AT THIS TIME. SHE HAS AN IV IN THE LAC ON SALINE LOCK. IV SITE IS DRY AND INTACT. BED IS IN THE LOWEST POSITION. SITTER IS AT BEDSIDE. CALL LIGHT WITHIN REACH. WILL CONTINUE TO MONITOR.
--- NOTE | 2016-11-11 23:13 | NUR ---
PT IS LAYING IN BED WATCHING TV. DOES NOT APPEAR TO BE IN ANY DISTRESS AT THIS TIME. PT DENIES PAIN. PT DENIES HEADACHE OR DIZZINESS. PT DENIES SOB. BED IN LOWEST POSITION. CALL LIGHT WITHIN REACH. SITTER AT BEDSIDE. WILL CONTINUE TO MONITOR.
--- NOTE | 2016-11-12 01:36 | NUR ---
PT IS LAYING IN BED SLEEPING SOUNDLY. SHE DOES NOT APPEAR TO BE IN ANY DISTRESS AT THIS TIME. BED IN THE LOWEST POSITION. CALL LIGHT WITHIN REACH. SITTER AT BEDSIDE. WILL CONTINUE TO MONITOR.
--- NOTE | 2016-11-12 03:10 | NUR ---
PT IS SOUND ASLEEP AND LAYING IN BED. SHE DOES NOT APPEAR TO BE IN ANY DISTRESS AT THIS TIME. ROOM IS FREE AND CLEAR OF ANY HAZARDS. CALL LIGHT WITHIN REACH. SITTER AT BEDSIDE. WILL CONTINUE TO MONITOR.
--- NOTE | 2016-11-12 04:49 | NUR ---
PT IS IN BED SLEEPING SOUNDLY. SHE DOES NOT APPEAR TO BE IN DISTRESS AT THIS TIME. CALL LIGHT WITHIN REACH. ROOM IS FREE AND CLEAR OF SAFETY HAZARDS. SITTER AT BEDSIDE. WILL CONTINUE TO MONITOR
[2016-11-12 06:00] VITALS: BP 93/58
--- NOTE | 2016-11-12 06:33 | NUR ---
PT WAS ABLE TO RECEIVE A GOOD NIGHT'S REST. THERE ARE NO SIGNIFICANT EPISODES TO REPORT. SHE COMPLIED WITH NURSING CARE THROUGHOUT THE SHIFT. PT DENIES ANY SUICIDAL IDEATION OR THOUGHTS OF HARMING OTHERS. ROOM IS FREE AND CLEAR OF ANY HAZARDS. IV SITE REMAINS SALINE LOCK TO LAC. IV SITE IS PATENT AND INTACT. CALL LIGHT WITHIN REACH. SITTER AT BEDSIDE. WILL ENDORSE CARE TO ONCOMING DAY NURSE
--- NOTE | 2016-11-12 07:28 | NUR ---
BEDSIDE REPORT AND INTRODUCTION PERFORMED WITH INCOMING NURSE ANDREA.
--- NOTE | 2016-11-12 07:45 | NUR ---
A/OX4. CLEAR SPEECH. FOLLOW COMMANDS. DENIES THOUGHTS OF SUICIDAL IDEATION. DENIES HALLUCINATIONS. MEDSURG HR 77 . RADIAL AND PEDAL PULSES PALPABLE. NO EDEMA OR SWELLING NOTED. <3 SECS CAP REFILL. ON RA SAT 96%. BREATHING EVEN AND UNLABORED. CLEAR LUNG SOUNDS. NO NVD. VOIDING ADEQUATELY. AMBULATORY WITH STEADY GAIT. DENIES PAIN AT THIS TIME. IV SITE INTACT ON LAC. SALINE LOCK THIS TIME. WILL CONTINUE TO MONITOR. CALL LIGHT WITHIN REACH.
[2016-11-12 07:50] VITALS: BP 115/75
--- NOTE | 2016-11-12 12:12 | NUR ---
RESTING COMFORTABLY. SITTER AT BEDSIDE.
--- NOTE | 2016-11-12 14:15 | NUR ---
UPDATED ROSITA (MOTHER) [phone] REGARDING PLAN OF CARE.
--- NOTE | 2016-11-12 15:10 | NUR ---
Pt STATES SHE IS HEARING VOICES. WILL CONTINUE TO MONITOR.
--- NOTE | 2016-11-12 16:14 | NUR ---
RESTING COMFORTABLY. NO DISTRESS NOTED.
--- NOTE | 2016-11-12 17:54 | NUR ---
COMPLAINS OF ACHING BACK AND SHOULDER PAIN 5/10. NORCO GIVEN. WILL CONTINUE TO MONITOR.
[2016-11-12 18:00] VITALS: BP 98/54
[2016-11-12 19:57] VITALS: BP 1085/74
--- NOTE | 2016-11-12 20:13 | NUR ---
AGITATED AND CONSTANTLY WALKING INSIDE ROOM AND CHANTING WORDS THAT ARE INCOMPREHENSIBLE, WHEN ASKED ABOUT WHAT SHE IS TALKING ABOUT SHE JUST GAVE ME A BLANK STARE AND SMILE. WILL MEDICATED FOR AGITATION /ANXIETY.
--- NOTE | 2016-11-12 20:23 | NUR ---
RECEIVED PT SITTING UP RIGHT IN BED. SHE IS ALERT BUT CONFUSED. SHE WAS WRITING ON A PIECE OF PAPER STATING SHE IS WRITING PRESCRIPTIONS FOR HER FAMILY. PT IS NOT HAVING ANY AUDITORY OR VISUAL HALLUCINATIONS AT THIS TIME. PT DENIES THOUGHTS OF HURTING HERSELF OR OTHERS. SHE IS A MED-SURG PT AND IS NOT ON TELE MONITORING. PT DENIES ANY CHEST PAIN. BILATERAL PERIPHERAL PULSES ARE STRONG AND PALPABLE. NO EDEMA NOTED. PT IS ON RA, LUNG SOUNDS CLEAR TO AUSCULTATION. SHE DENIES SOB AT THIS TIME. PT DOES NOT APPEAR TO BE RESP DISTRESS. HER ABDOMEN IS ROUND AND SOFT WITH ACTIVE BOWEL SOUNDS. PT STATED HER LAST BM WAS TODAY, NORMAL AND FORMED. PT IS ABLE TO FREELY VOID URINE. DENIES INCONTINENCE. SHE FREELY AMBULATES ON HER OWN WITHOUT ASSIST. HER SKIN IS WNL, DRY AND INTACT. NO ECCHYMOSIS OR REDNESS NOTED. PT DENIES PAIN AT THIS TIME. IV SITE TO LAC IS SALINE LOCK PER DOCTOR'S ORDERS. IV SITE IS PATENT, DRY, AND INTACT. BED IN THE LOWEST POSITION. ROOM IS FREE AND CLEAR OF ANY HAZARDS. CALL LIGHT WITHIN REACH. SITTER AT BEDSIDE. WILL CONTINUE TO MONITOR.
--- NOTE | 2016-11-12 20:27 | NUR ---
MEDICATED PRN FOR AGITATION/ANXIETY. WILL CONTINUE TO MONITOR. 1:1 SITTER AT BEDSIDE FOR PATIENTS. SAFETY.
--- NOTE | 2016-11-12 22:19 | NUR ---
PT IS LAYING BED WITH EYES CLOSED. PT DENIES AT PAIN AT THIS TIME. SHE IS IN NO SIGNS OF DISTRESS. NO AUDITORY OR VISUAL HALLUCINATIONS ARE PRESENT. CALL LIGHT WITHIN REACH. SITTER AT BEDSIDE. WILL CONTINUE TO MONITOR.
--- NOTE | 2016-11-13 00:24 | NUR ---
PT IS SLEEPING SOUNDLY IN BED. DOES NOT APPEAR TO BE IN DISTRESS AT THIS TIME. CALL LIGHT WITHIN REACH. WILL CONTINUE TO MONITOR
--- NOTE | 2016-11-13 01:18 | NUR ---
PT C/O STOMACHE PAIN. WHEN ASKED TO EVALUATE PAIN, SHE SAID THAT SHE WAS DREAMING AND THAT SHE IS NO LONGER IN PAIN
--- NOTE | 2016-11-13 02:25 | NUR ---
PT IS LAYING IN BED SLEEPING SOUNDLY. SHE DOES NOT APPEAR TO BE IN ANY DISTRESS AT THIS TIME. CALL LIGHT WITHIN REACH. ROOM IS FREE AND CLEAR OF ANY SAFETY HAZARDS. SITTER AT BEDSIDE. WILL CONTINUE TO MONITOR.
--- NOTE | 2016-11-13 05:15 | NUR ---
PT SLEEPING IN BED RESTING. NO SIGNIFICANT OCCURENCES TO REPORT THROUGHOUT THE NIGHT. PT COMPLIED WITH NURSING CARE THROUGH THE SHIFT. PT DENIES ANY AUDITORY OR VISUAL HALLUCINATIONS THROUGH THE SHIFT. BED IN LOWEST POSITION. CALL LIGHT WITHIN REACH. SITTER AT BEDSIDE. WILL ENDORSE CARE TO AM NURSE.
[2016-11-13 06:32] VITALS: BP 100/62
--- NOTE | 2016-11-13 07:31 | NUR ---
BEDSIDE REPORT AND INTRODUCTION PERFORMED WITH INCOMING NURSE MICHELLE.
--- NOTE | 2016-11-13 07:33 | NUR ---
PATIENT SEEN. PATIENT APPEARS CALM AT THIS TIME. PATIENT IS A MED SURG PATIENT, NO TELE MONITOR IN PLACE. SCDS ARE IN PLACE. RESPIRATIONS ARE EVEN AND UNLABORED ON ROOM AIR. BS ACTIVE. IV IN LAC SALINE LOCKED. DENIES PAIN AT THIS TIME. ALL SAFETY MEASURES IN PLACE. PATIENT HAS A SITTER PRESENT IN THE ROOM. WILL CONTINUE TO MONITOR.
[2016-11-13 09:59] VITALS: BP 117/78
--- NOTE | 2016-11-13 10:00 | NUR ---
PATIENT'S COUSIN (AIDEN CARVAJAL) HAS STOPPED BY TO VISIT PATIENT. COUSIN STATED THAT HE WAS CONCERNED ABOUT THE PATIENT COMING HOME. HE STATED: "I GET CALLS FROM HER AND SHE SAYS THAT THE VOICES ARE TELLING HER TO HURT HER MOTHER, AND THEN I GET HOME AND I SEE HER WITH A KNIFE IN HER HANDS READY TO ATTACK THE MOTHER. I WORRY ABOUT HER MOTHER." PAGED DR TORRES TO NOTIFY HIM OF CONCERNS.
--- NOTE | 2016-11-13 10:48 | NUR ---
PATIENT SEEN. LAC IV DRESSING APPEARED BLOODY AT THIS TIME. IV WAS REMOVED FROM PATIENT, CATHETER INTACT. PRESSURE APPLIED TO SITE FOR 2 MINUTES AND SITE WAS COVERED WITH STERILE GAUZE DRESSING. PATIENT TOLERATED PROCEDURE WELL.
--- NOTE | 2016-11-13 11:30 | NUR ---
ATTEMPTED TO INSERT IV CATHETHER INTO RIGHT FOREARM. PATIENT ACCEPTED TO HAVE A NEW IV INSERTED. PATIENT BECAME VERY AGITATED DURING IV INSERTION AND STARTED TO SHAKE THE ARM. PATIENT REFUSED TO HAVE THE IV INSERTED AT THIS POINT. IV INSERTION WAS STOPPED. PATIENT REFUSED TO HAVE BAND AID PLACED OVER INSERTION SITE. PATIENT WAS ENCOURAGED TO USE THE BANDAID OR GAUZE TO COVER THE INSERTION SITE BUT SHE REFUSED. ALSO REFUSED TO TRY AND PUT ON THE BANDAID HERSELF. BLEEDING VERY MINIMAL, PATIENT REFUSED ALL INTERVENTIONS TO STOP IT.
--- NOTE | 2016-11-13 11:45 | NUR ---
PATIENT IS VERY AGITATED AND STARTED TO THROW OBJECTS IN THE ROOM. SHE THREW THE EMPTY PLASTIC WASH BASIN ALONG WITH THE EMPTY UNUSED EMESIS BAG AT THE FLOOR IN THE DIRECTION OF THE NURSE. PATIENT REMOVED HOSPITAL GOWN AND CHANGED INTO HER CLOTHES. PATIENT PUSHED THE CHAIR AGAINST THE WALL WITH HER FEET. PATIENT STATED THAT SHE WANTED TO LEAVE NOW. SHE SAID "I AM TIRED OF YOU PEOPLE ALL ACTING LIKE IDIOTS." SECURITY WAS NOTIFIED AND ARRIVED AT THE ROOM. PATIENT TALKED TO SECURITY AND CALMED DOWN AND RESTED ON HER BED. REFUSED TO WEAR HOSPITAL GOWN.
--- NOTE | 2016-11-13 12:00 | NUR ---
PATIENT WALKED OUTSIDE OF HER ROOM AGAIN AND WALKED A MESA GRANDE AROUND THE HOSPITAL FLOOR. PATIENT STATED, "I HAVE BEEN HERE FOR 11 DAYS AND YOU GUYS ARE KEEPING ME HERE FOREVER." PATIENT ALSO STATED, "SO I HAVE BEEN HERE FOR 17 DAYS AND YOU GUYS WANT TO KEEP ME HERE FOREVER." PATIENT WAS RE-ORIENTED TO LOCATION AND TIME, AND REMINDED HOW LONG SHE HAS BEEN IN THE HOSPITAL. SECURITY WAS PRESENT AND ENCOURAGED PATIENT TO RETURN TO HER ROOM. PATIENT RETURNED TO HER ROOM.
--- NOTE | 2016-11-13 12:30 | NUR ---
SPOKE WITH DR TORRES AND NOTIFIED HIM ABOUT PATIENT GETTING AGITATED AND WANTED TO LEAVE. RECEIVED TELEPHONE ORDER TO START MEDICATION ZYPREXA AND DIVALPROEX SODIUM AND ALSO DR. ABARCA PSYCHIATRY CONSULTATION. ATTENDING NURSE EWA MADE AWARE.
--- NOTE | 2016-11-13 13:40 | NUR ---
PATIENT WALKED OUT OF HER ROOM STATING "I'M LEAVING." PATIENT STATES "I WANT TO KNOW WHY YOU ARE GOING TO KEEP ME HERE FOREVER. I AM NOT SICK. YOU GUYS GET OUT OF MY HEAD." SECURITY REQUESTED THE PATIENT TO RETURN TO HER ROOM AND THE PATIENT RETURNED TO HER ROOM. PATIENT STATED THAT SHE HEARS MANY VOICES, BUT THEN CHANGED HER MIND AND STATED, "IM NOT HEARING ANY VOICES." PATIENT THOUGH PATTERN APPEARS IRRATIONAL. SHE STATED, "HOW IS IT POSSIBLE THAT YOU [place] IN YOUR [place] AND [place] AND I HAVE TO HEAR THE SAME THINGS YOU." PATIENT IS NOW RESTING IN BED. 1:1 SITTER IS PRESENT IN THE ROOM FOR PATIENT SAFETY. ALL SAFETY MEASURES IN PLACE.
--- NOTE | 2016-11-13 14:00 | NUR ---
DR GIMENEZ IS IN THE PATIENT'S ROOM AT THIS TIME TALKING TO THE PATIENT AND EVALUATING THE PATIENT.
--- NOTE | 2016-11-13 15:00 | NUR ---
PATIENT STATES, "I DONT LIKE TO TAKE MEDICATION, I DONT THINK THAT I NEED IT." PATIENT WAS REMINDED OF THE PURPOSE OF MEDICATION, AND THE IMPORTANCE OF COMPLIANCE WITH MEDICATION WAS RE-EMPHASIZED. PATIENT THEN ASKED, "I DONT UNDERSTAND WHY I HAVE TO TAKE MEDICATION. I DONT THINK I NEED IT." PATIENT IS VERY FORGETFUL. 1:[address] FOR PATIENT SAFETY. WILL CONTINUE TO MONITOR.
--- NOTE | 2016-11-13 16:40 | NUR ---
PATIENT IS SLEEPING IN BED CURRENTLY. RESPIRATIONS ARE EVEN AND UNLABORED. NO SIGNS OF ACUTE DISTRESS ARE PRESENT. ALL SAFETY PRECAUTIONS IN PLACE.
--- NOTE | 2016-11-13 18:40 | NUR ---
PATIENT ATE HER DINNER AND THEN WENT TO SLEEP IN BED. RESPIRATIONS ARE EVEN AND UNLABORED AND PATIENT IS LIGHTLY SNORING. NO SIGNS OF ACUTE DISTRESS ARE PRESENT. PATIENT HAS 1:1 SITTER IN ROOM AT THIS TIME FOR SAFETY. WILL CONTINUE TO MONITOR.
--- NOTE | 2016-11-13 19:15 | NUR ---
REPORT GIVEN TO [facility] NURSE. AT THIS TIME THE PATIENT IS RESTING IN BED. NO SIGNS OF ACUTE DISTRESS. RESPIRATIONS EVEN AND UNLABORED ON ROOM AIR. NO SIGNS OF ACUTE DISTRESS. ALL SAFETY MEASURES IN PLACE. 1:1 SITTER AT BEDISDE.
--- NOTE | 2016-11-13 19:20 | NUR ---
RECEOVED PT IN BED ASLEEP BUT EASILY AROUSABLE. PT IS ORIENTED X2. W/ !:1 SITTER AT BEDSIDE. NO SOB ON RA. SHE HAS NO C/O PAIN AT THIS TIME. PT HAS NO IV ACCESS AND PER REPORT , PT REFUSED IV REINSERTION. PT CALM AT THIS TIME.
[2016-11-13 21:21] VITALS: BP 97/55
--- NOTE | 2016-11-13 22:59 | NUR ---
PT ASLEEP AND AROUSABLE BUT REFUSED TO WAKE UP TO TAKE HER PO MEDS.
--- NOTE | 2016-11-14 01:45 | NUR ---
PT APPEARS TO BE SLEEPING COMFORTABLY.
[2016-11-14 05:23] VITALS: BP 90/47
--- NOTE | 2016-11-14 06:12 | NUR ---
PT SLEPT THROUGH THE NIGHT. SHE HAD NO EPISODE OF HALLUCINATIONS PT JUST SLEPT ALL NIGHT. SHE HAD NO C/O PAIN. PT STILL W/ NO IV ACCESS. SITTER REMAINS AT BEDSIDE.
[2016-11-14 08:00] VITALS: BP 103/53
--- NOTE | 2016-11-14 08:00 | NUR ---
A/A/OX3. NO RESP DISTRESS ON RA. DENIED PAIN NOW. AMBULATORY. NO IV ACCESS NOW. FINISHED 1005 OF REGULAR DIET BREAKFAST. NO N/V/. DENIED PAIN. SKIN INTACT. AUDITORY AND VISUAL HALLUCINATION AT TIMES. SITTER AT BED SIDE.
--- NOTE | 2016-11-14 09:01 | NUR ---
DR. TORRES CAME TO SEE PATIENT. PATIENT REQUESTED TO GO HOME TODAY. DR. TORRES TOLD PATIENT THAT HE WOULD CLARIFY WITH DR GIMENEZ. OTHERWISE PATIENT NEED TRANSFER TO [facility]. AT TIME OF WAITING FOR [facility] BED AVAILABLE, PATIENT COULD NOT LEAVE HOSPITAL.
--- NOTE | 2016-11-14 10:00 | NUR ---
WALKED WITH CAREGIVER IN HALLWAY.
--- NOTE | 2016-11-14 16:31 | NUR ---
Initial Nutrition Assessment Dx: Bipolar disorder, ALOC PMHx: BiPolar,Schizophrenia PSHx:no known past surgical history Labs: (11/08) K:2.8L, BH, Ca:8.4L, A1c:5.7, Ammonia:35H, (11/09) K:3.7 Meds: Depakote, Zyprexa Diet:Regular PO Intake: (11/09) L:40% (11/10) B:50%+snack (11/13) B:100% (11/14) B:100%+snack Ht: 63in, 5'3" Wt: 185#, 83.91kg BMI:32.8kg/m2 (obesity class I) IBW: 115#, 52kg %IBW: 161% UBW:unable to obtain Age:30 y/o female Food Allergies: unable to obtain Skin: intact Keith:21 Edema:None GI: active bowel sounds Last BM:11/12 Pt admitted with Metabolic Encephalopathy 2/2 acute schizophrenic vs bipolar episode, on 5150 hold, substance abuse, reported methamphetamine abuse and medication non-compliance of psych medications, per H&P. Per bed huddle this morning, pt is pending psych placement. During visit, observed pt sleeping in bed. Per nurse, pt with no GI issues and with good appetite. Problem with: N: No V: No D: No C:No Problems with: Chewing:No Swallowing:No Current appetite: good per RN Recent wt change:unable to obtain %wt change:N/A Vitamin/Supplement use: unable to obtain Special diet at home: unable to obtain Physical activity: unable to obtain Education: unable to provide due to pt sleeping Estimated Nutritional Needs Based on ideal body weight 52 kg Energy: 1300-1560kcal/d (25-30kcal/kg for adult maintenance) Protein: 52g/d (1g/kg for adult maintenance) Fluid: 1300-1560ml/d (1 ml/kcal) or per doctor Nutrition Diagnosis 1. Obesity related to possible sedentary lifestyle and overconsumption of kcals as evidenced by BMI:32.8kg/m2 and 161% of IBW. Intervention 1.Recommend continue with current diet. 2. Monitor BG levels, if elevated consider CCHO. Pt's Hgb:5.7 Monitor/Evaluate Goal: PO intake at least 75% of estimated needs Monitor: PO intake, Labs (BG), GI function F/U in 14 days as low risk: 11/28
--- NOTE | 2016-11-14 16:34 | NUR ---
1.Recommend continue with current diet. 2. Monitor BG levels, if elevated consider CCHO diet. HgA1c:5.7
[2016-11-14 17:54] VITALS: BP 109/73
--- NOTE | 2016-11-14 18:55 | NUR ---
HAD SLEEPING MOSTLY, CALM NOW. CONDITION STABLE.
--- NOTE | 2016-11-14 19:45 | NUR ---
RECD REPORT FROM RN QINMU. PT ASLEEP AT THIS TIME, BUT AROUSABLE. NO RESPIRATORY DISTRESS NOTED AT THIS TIME. NO C/O PAIN. PT HAS NO IV ACCESS. PER REPORT, PT REFUSED IV ACCESS. SITTER AT BEDSIDE. BED IN LOW POSITION, CALL LIGHT WITHIN REACH. WILL CONTINUE TO MONITOR.
--- NOTE | 2016-11-14 20:00 | NUR ---
I HAVE REVIEWED THE DATA COLLECTION BY REBECCA (NAME):PALLAVI HODGES. ENTERED ON (DATE/TIME): I CONCUR WITH THE DATA AND ANY EXCEPTIONS OR COMMENTS ARE LISTED BELOW:
--- NOTE | 2016-11-14 20:14 | NUR ---
PT SUCTIONED VIA TRACH. SMALL AMOUNT OF WHITISH SECRETIONS OBTAINED. O2 VDH=068%.
--- NOTE | 2016-11-14 21:41 | NUR ---
PT AWAKE AT THIS TIME. PT TOOK SCHEDULED PO MEDS WELL WITHOUT INCIDENT. NO HALLUCINATIONS NOTED AT THIS TIME.
[2016-11-14 21:47] VITALS: BP 111/75
--- NOTE | 2016-11-14 23:45 | NUR ---
PT APPEARS TO BE SLEEPING. NO SIGNS OF DISTRESS NOTED AT THIS TIME. WILL CONTINUE TO MONITOR.
--- NOTE | 2016-11-15 01:51 | NUR ---
PT SLEEPING COMFORTABLY AT THIS TIME. NO SIGNS OF DISTRESS NOTED. SITTER AT BEDSIDE. WILL CONTINUE TO MONITOR.
[2016-11-15 04:33] VITALS: BP 107/58
--- NOTE | 2016-11-15 04:55 | NUR ---
PT SLEEPING AT THIS TIME WITH NO SIGNS OF DISTRESS NOTED. SITTER AT BEDSIDE. WILL CONTINUE TO MONITOR.
--- NOTE | 2016-11-15 05:19 | NUR ---
PT SLEPT THROUGH MOST OF NIGHT WITH SITTER AT BEDSIDE. PT TOOK SCHEDULED MEDS WELL WITH NO INCIDENT. NO HALLUCINATIONS NOTED THROUGHOUT SHIFT.
--- NOTE | 2016-11-15 07:33 | NUR ---
REPORT GIVEN TO LIANNA RAMOS. ALL CARES ENDORSED.
--- NOTE | 2016-11-15 07:45 | NUR ---
PATIENT RECEIVED SLEEPING BUT EASILY ARROUSABLE, A/O, ABLE TO MAKE NEEDS KNOWN. SITTING UP TO EAT BREAKFAST MEAL NOW. ANSWERING QUESTIONS PASSIVELY AND VAGUELY. DENIES ANY PAIN/DISCOMFORT. NO RESP DISTRESS NOTED ON RA. NO IV ACCESS NOTED, OFFERED BUT REFUSED "I DONT NEED IT". CALL LIGHT WITHIN REACH. SITTER IN ROOM.
--- NOTE | 2016-11-15 08:30 | NUR ---
PATIENT REQUESTING TO KNOW WHEN WILL DR GIMENEZ COME BY TODAY AND WHY HE ISN'T LETTING HER GO HOME. "WHY IS HE KEEPING ME HERE, I WANT TO GO HOME", PATIENT INFORMED OF ONGOING PLAN OF CARE TO TRANSFER PATIENT TO INPATIENT PSYCH FACILITY, PATIENT STATES "WHY DO I NEED TO GO THERE? HE LET ME GO HOME LAST TIME I WAS HERE, WHY WONT HE LET ME GO HOME NOW? I'VE BEEN HERE FOR 8 DAYS" DUE MEDICATIONS PROVIDED TO PATIENT AND IMPORTANCE OF TAKING THEM, PATIENT REFUSED STATING "HOW DO I EVEN KNOW THESE MEDS ARE WORKING? I'M NOT TAKING THEM IF DR GIMENEZ ISN'T GOING TO DISCHARGE ME". CHARGE NURSE MADE AWARE.
--- NOTE | 2016-11-15 09:55 | NUR ---
PATIENT WANTS TO KNOW IF THERE IS ANY CHANCE OF BEING DISCHARGED TODAY, INFORMED HER IF THERE ARE ANY NEWS OR CHANGE IN HER PLAN OF CARE/DISCHARGE THEN SHE WILL BE MADE AWARE. MORNING MEDICATIONS OFFERED AGAIN AND IMPORTANCE OF TAKING THEM, PATIENT STATES "I REALLY DONT THINK I NEED TO TAKE THOSE" INFORMED HER TO CALL IF SHE CHANGES HER MIND, VERBALIZED UNDERSTANDING.
--- NOTE | 2016-11-15 11:05 | NUR ---
PER DR TORRES WHO WAS AT BEDSIDE, WILL HAVE DR GIMENEZ RE-EVALUATE PATIENT FOR POSSIBLE DISCHARGE TODAY IF SAFE TO DO SO. INFORMED DR TORRES OF PATIENT REFUSING TO TAKE AM MEDICATIONS AND NOT BEING COOPERATIVE A COUPLE DAYS AGO PER REPORT, ALSO THAT PATIENT HAS BEEN EXPRESSING DESIRE TO GO HOME AND DOES NOT FEEL THE NEED TO STAY. DR TORRES STATES IF PATIENT IS NOT COMPLIANT WITH MEDICATIONS, PATIENT MAY NOT BE ABLE TO BE DISCHARGED HOME SAFELY. WILL INFORM PATIENT.
--- NOTE | 2016-11-15 12:20 | NUR ---
PATIENT AWAKE NOW, INFORMED HER OF NEEDING TO BE RE-EVALUATED BY DR GIMENEZ PER DR TORRES AND ALSO INFORMED HER THE IMPORTANCE OF BEING COMPLIANT WITH TAKING MEDICATIONS. PATIENT VERBALIZED UNDERSTANDING AND TOOK AM MEDICATIONS. WANTS TO KNOW WHEN DR GIMENEZ IS COMING, INFORMED HER DR GIMENEZ WILL BE REMINDED TO SEE HER SOON HE ARRIVES.
--- NOTE | 2016-11-15 17:50 | NUR ---
PATIENT STILL WAITING ON PSYCH RE-EVAL. [facility] PAGED, DR LEWIS OPHTHALMIC DISPENSER. DR ABARCA OFFICE PAGED, DR QUEZADA OPHTHALMIC DISPENSER.
--- NOTE | 2016-11-15 19:35 | NUR ---
RECD PT IN BED ASLEEP, BUT EASILY AROUSABLE. NO RESPIRATORY DISTRESS NOTED AND NO C/O PAIN AT THIS TIME. PT HAS SITTER AT BEDSIDE. PT HAS NO IV ACCESS. PER REPORT, PT REFUSED IV ACCESS. BED IN LOW POSITION, CALL LIGHT WITHIN REACH. WILL CONTINUE TO MONITOR.
--- NOTE | 2016-11-15 21:10 | NUR ---
RECEIVED CALL FROM DAVID ANGELO, PER ADITYA THEY CAN'T ACCEPT PT DUE TO PT'S MEDICAL IS FROM [facility] AND THEY ARE NOT CONTRACTED WITH IT, WILL ENDORSE TO MORNING SHIFT NURSE.
--- NOTE | 2016-11-15 22:50 | NUR ---
PT SLEEPING COMFORTABLY AT THIS TIME ON LEFT SIDE. SITTER AT BEDSIDE. WILL CONTINUE TO MONITOR.
--- NOTE | 2016-11-16 01:34 | NUR ---
PT AWAKE, SITTING UP IN BED WATCHING TV. NO C/O PAIN/N/V AT THIS TIME. NO HALLUCINATIONS OBSERVED. PT IS AAO X3. SITTER AT BEDSIDE. WILL CONTINUE TO MONITOR.
--- NOTE | 2016-11-16 03:47 | NUR ---
PT SLEEPING AT THE MOMENT. NO SIGNS OF DISTRESS NOTED. SITTER AT BEDSIDE. WILL CONTINUE TO MONITOR.
--- NOTE | 2016-11-16 06:06 | NUR ---
PT SLEPT THROUGH THE NIGHT AND WOKE UP 1X TO WATCH TV. PT AMBULATED TO RESTROOM 1X PER SITTER. SITTER AT BEDSIDE. PT TOOK MEDS WITHOUT INCIDENT AND TOLERATED MEDS WELL. NO C/O PAIN THROUGHOUT EVENING. PT CURRENTLY ASLEEP. BED IN LOW POSITION, CALL LIGHT WITHIN REACH.
--- NOTE | 2016-11-16 07:23 | NUR ---
REPORT GIVEN TO LIANNA RAMOS. ALL CARES ENDORSED.
--- NOTE | 2016-11-16 08:15 | NUR ---
PATIENT RECEIVED SLEEPING BUT EASILY ARROUSABLE, A/O, ABLE TO MAKE NEEDS KNOWN. NOT VOICING ANY SUICIDAL IDEATION AT THIS TIME. CALM AT THIS TIME. DENIES ANY PAIN/DISCOMFORT. NO RESP DISTRESS NOTED ON RA. NO IV ACCESS NOTED. STATES WANTS TO GO HOME, NO UPDATE YET. CALL LIGHT WITHIN REACH. SITTER IN ROOM.
[2016-11-16 09:12] VITALS: BP 111/78
--- NOTE | 2016-11-16 09:20 | NUR ---
PATIENT TOOK AM MEDICATIONS.
--- NOTE | 2016-11-16 10:50 | NUR ---
(PSYCHOLOGIST) IN AND RE-EVAL PT, HE CLEARED PT ON 5150 AND SAID PT IS OKAY TO DISCHARGE HOME PER PSYCH STANDPOINT. HAD TALKED TO MOTHER ON THE PHONE AT LENGTH AND MADE HER AWARE THAT HE CLEARED PT ON 5150 AND PT IS OKAY TO D/C HOME TODAY. RACHEL DSOUZA ASSIGNED TO THIS PT MADE AWARE OF [facility] AND SHE WILL CONTACT (ATTENDING) OF [facility]OVE AND TO REFILL PT PSYCH RX. ZAK(CASE MGMT) MADE AWARE OF ABOVE.
[2016-11-16 11:34] VITALS: BP 111/78
--- NOTE | 2016-11-16 14:00 | NUR ---
RECEIVED TELEPHONE ORDER FROM DR NORRIS (ATTENDING) TO DISCHARGE PATIENT WITH REFILL OF HOME/PSYCH MEDICATIONS. MOTHER CONTACTED, PREFFERED PHARMACY IS [facility] IN [place] ([place]). PRESCRIPTION CALLED AND VERIFIED FOR DR NORRIS. DISCHARGE INSTRUCTIONS GIVEN AND STRESSED ON THE IMPORTANCE OF COMPLYING WITH PRESCRIBED MEDICATIONS DIRECTED BY DR GIMENEZ AND DR NORRIS AND TO FOLLOW UP WITH DR GIMENEZ CLINIC IN 1 WEEK, PATIENT VERBALIZED UNDERSTANDING. SPOKE WITH MOTHER ON PHONE, INFORMED HER OF DISCHARGE INSTRUCTIONS WELL, SHE VERBALIZED UNDERSTANDING. MOTHER WILL SUPERVISOR SILVERING DEPARTMENT PATIENT AT 1500.
--- NOTE | 2016-11-16 14:46 | NUR ---
PT BEING WALKED DOWN BY STAFF, PT'S MOTHER AT THE [facility]. PT IS AAOX4. PT DISCHARGED.
== END 2016-11-16 14:47 | disposition home or self-care (01) | DRG 750 ==
LOC: ED 20:32 → MU 23:59
PROVIDERS: Emergency Medicine; ADMIT Internal Medicine
DX: F25.0 Schizoaffective disorder, bipolar type (principal); F22 Delusional disorders; E87.6 Hypokalemia; E66.9 Obesity, unspecified; F17.210 Nicotine dependence, cigarettes, uncomplicated
CPT/HCPCS: 82962; 83880; G0480; J2060; J2270; J3480; J7030